=== PATIENT | male | born 2000 | race Caucasian/White ===

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

== ENCOUNTER 2024-10-29 00:05 | Emergency (ER) | payer BC | END 2024-10-29 00:37 | disposition home or self-care (01) | LOC: KA.ED 00:05 | DX: F10.120 Alcohol abuse with intoxication, uncomplicated (principal); Z88.8 Allergy status to other drugs, medicaments and biological substances; Z79.899 Other long term (current) drug therapy; Y90.9 Presence of alcohol in blood, level not specified | CPT/HCPCS: 82947; 99284 ==